=== PATIENT | male | born 1970 | race African-American/Black ===

== ENCOUNTER 2020-04-29 03:21 | Inpatient (IN) | payer SELFPAY ==
[~2020-04-29] VITALS: Ht 188 cm; Wt 114.3 kg
[2020-04-29] VITALS (8 sets, daily range): BP systolic 138–160; BP diastolic 95–109
[2020-04-29] MEDS ORDERED: HYDRALAZINE HCL 20 MG/ML VIAL IV PRN (05:00)
[2020-04-29] MEDS ORDERED: SODIUM CHLORIDE 0.9% 1000ML 1,000 ML IV SCH (05:00)
[2020-04-29] MEDS: NIFEDIPINE CR 30 MG TAB PO SCH ×2 (05:00→09:54)
[2020-04-29] MEDS ORDERED: ONDANSETRON HCL INJ 2MG/ML 2ML 2 MG/ML VIAL IV PRN (05:00)
[2020-04-29] MEDS ORDERED: ACETAMINOPHEN 325 MG TAB PO PRN (05:00)
[2020-04-29] MEDS ORDERED: DEXTROSE 50% SYRINGE 50 ML IV PRN (05:00)
[2020-04-29] MEDS ORDERED: NORVASC5 MG PO (06:29)
[2020-04-29 06:31] LABS: BASOPHILS % 0.7 % (0.0-1.0); EOSINOPHILS # (AUTO) 0.2 (0.0-0.4); EOSINOPHILS % 3.1 % (0.0-6.0); HEMATOCRIT 44.7 % (38.2-49.6); LYMPHOCYTES # (AUTO) 1.4 (1.0-3.2); LYMPHOCYTES % 23.4 % (18.0-39.1); MEAN CORPUSCULAR HEMOGLOBIN 29.4 pg (28-32); MEAN CORPUSCULAR HGB CONC 33.6 g/dL (31-35); MEAN CORPUSCULAR VOLUME 87.6 fL (81-99); MONOCYTES # (AUTO) 0.4 (0.2-0.8); MONOCYTES % 6.9 % (4.4-11.3); NEUTROPHILS # (AUTO) 3.9 (2.1-6.9); NEUTROPHILS % 65.6 % (38.7-80.0); PLATELET COUNT 209 x10e3/uL (140-360); RED CELL DISTRIBUTION WIDTH 12.1 % (11.7-14.4)
[2020-04-29 06:56] LABS: ALANINE AMINOTRANSFERASE 33 IU/L (0-55); ALBUMIN 3.5 g/dL (3.5-5.0); ALBUMIN/GLOBULIN RATIO 0.9 (0.8-2.0); ALKALINE PHOSPHATASE 118 IU/L (40-150); BLOOD UREA NITROGEN 11 mg/dL (7-26); BUN/CREATININE RATIO 11 (6-25); CALCIUM 8.6 mg/dL (8.4-10.2); CARBON DIOXIDE 20 mmol/L (22-29); CHLORIDE 106 mmol/L (98-107); EST GLOMERULAR FILTRATION RATE > 60 ML/MIN (60-); GLUCOSE 275 mg/dL (74-118); SODIUM 138 mmol/L (136-145)
[2020-04-29] MEDS ORDERED: INSULIN LISPRO 100 UNIT/1 ML 3ML VIAL SQ SCH ×2 (07:30→15:00)
[2020-04-29] MEDS: LOSARTAN POTASSIUM 100 MG TAB PO SCH ×2 (11:30→21:54)
--- NOTE | 2020-04-29 12:34 | NUR ---
ASSESSMENT: Spiritual concern Watch Inspector called pt's , Patricia, to provide spiritual/emotional support. Pt's states their family is "amazed of God's mercy." Pt's family hopeful of his soon recovery and discharge from hospital. Pt's stated that "seeing him on Facetime was a godsend." Intervention: Provided empathic listening and prayer. Outcome: Pt's stated "your call means all the world." Will follow as able. [facility] Department O: [phone]
[2020-04-29 14:32] LABS: FREE T4 (FREE THYROXINE) 0.88 ng/dL (0.8-1.8); THYROID STIMULATING HORMONE 1.327 uIU/mL (0.350-4.940)
--- NOTE | 2020-04-29 14:54 | NUR ---
GAVE PACKET OF INFORMATION WITH COMMUNITY RESOURCES FOR ASSISTANCE WITH LOW TO NO INCOME TO PATIENT. RESOURCES THAT PATIENT MAY BE ABLE TO FOLLOW UP UPON DISCHARGE. PT EDUCATED ON EACH RESOURCE AND UNDERSTANDING HOW TO FOLLOW UP TO SEE IF QUALIFIED FOR EACH RESOURCE.
[2020-04-29] MEDS ORDERED: INSULIN GLARGINE 100 UNITS/ML VIAL SQ SCH ×2 (17:00→21:00)
[2020-04-29] MEDS: INSULIN LISPRO 100 UNIT/1 ML 3ML VIAL SQ SCH ×3 (17:21→22:07)
[2020-04-29] MEDS: ENOXAPARIN SOD INJ 40 MG/0.4 ML SYR SC SCH (18:10)
--- NOTE | 2020-04-29 18:40 | NUR ---
RECEIVED PT FROM ICU. PT ORIENTED TO FLOOR ROOM AND CALL LIGHT
--- NOTE | 2020-04-29 18:50 | History and Physical ---
CHIEF COMPLAINT: Transfer from a freestanding ER due to concerns for DKA and hypertension urgency. HISTORY OF PRESENT ILLNESS: A 49-year-old male got transfer from a freestanding ER due to concerns for underlying DKA and hypertension urgency. The patient reports he has been diagnosed with prediabetes about a jbqq-dlr-t-half ago. He does not frequently see a PCP. He states he takes some oral medication, but he states that he is not very compliant seeing the PCP. He does not know the name of the medication he takes at home. The patient is currently doing well during my evaluation. He does not have any DKA according to the labs I had ordered. The patient was stable. He will be transferred to the medical floor. The patient reports he has been drinking a lot of juice, some water melons and some apple juice and OJ and reports he has been having significant amount of polyuria and polyphagia. Also polydipsia. REVIEW OF SYSTEMS: Pertinent positive: Polyphagia, polydipsia, polyuria. The rest of 14-point review of systems have been reviewed the patient and are negative. ALLERGIES: NO KNOWN DRUG ALLERGIES. HOME MEDICATIONS: Amlodipine. PAST MEDICAL HISTORY: Hypertension, prediabetes. PAST SURGICAL HISTORY: Reports none. FAMILY HISTORY: Hypertension, diabetes. SOCIAL HISTORY: No drugs. No alcohol. Does not smoke. Good social support. PHYSICAL EXAMINATION: VITAL SIGNS: Temperature is 97.9, pulse 98, respiratory rate 17, blood pressure is 150/105, pulse ox is 100% is on room air. GENERAL: No acute distress. Alert and oriented x3. Cooperative on examination. HEENT: Head is normocephalic, atraumatic. Eyes; pupils are equal, round, and reactive to light bilaterally. Extraocular movements are intact bilaterally. NECK: Supple. Good range of motion. Throat, no evidence of any erythema or exudates in the posterior pharynx. Has poor dentition. PULMONARY: Clear to auscultation bilaterally. No wheezing, no rales, no rhonchi, no crackles appreciated. CARDIOVASCULAR: Positive S1, S2. No murmurs, rubs, or gallops appreciated. ABDOMEN: Soft, nondistended, nontender to palpation. Bowel sounds present. MUSCULOSKELETAL: Strength is 5/5 throughout. No evidence of muscle deficits on examination. No weakness appreciated. NEUROLOGICAL: Cranial nerves 2 through 12 grossly intact. No evidence of any neurological deficits on exam. SKIN: Intact. Warm to touch. Good cap refill. PSYCHIATRIC: Normal affect and mood. EXTREMITIES: No edema. Good range of motion throughout. LABORATORY FINDINGS: Show white count 5.9, hemoglobin 15, hematocrit 44.7, platelets of 209. Chemistry; sodium 138, potassium 4, chloride 106, bicarb 20, anion gap of 16, BUN is 11, creatinine is 1, glucose was 275, point of care was 273. A1c 12.7. His LFTs within normal range. Total protein 7.5, albumin 3.5. Microbiology none. Anion gap of 16. His UA showed greater than 500 glucose. Nitrite and leukocyte were negative. Leukocyte esterase was negative. Troponin was negative. No imaging noted. IMPRESSION: 1. Uncontrolled type 2 diabetes. 2. Hypertension urgency. PLAN: At this time, the patient does not have any evidence of DKA. In fact, he did not even have DKA at the [facility] ER after reviewing the chart. The patient's glucose was elevated in fact he could have been given insulin and been discharged from the [facility] ER. On any rate, his hemoglobin A1c was 12.7. We will initiate him on insulin and have Endocrinology consultation. Stop IV fluids. Initiate nifedipine XL 30 mg daily and add losartan 50 mg twice a day. Otherwise, the patient is doing well. He is stable. We transfer from ICU to the medical floor. Potential discharge is tomorrow. Put him on Lovenox for DVT prophylaxis. MD LEE Farfan/MODL /[id number]
--- NOTE | 2020-04-29 19:10 | NUR ---
RECEIVED QUICK BRIEF BEDSIDE SHIFT REPORT FROM PREVIOUS NURSE. PATIENT SITTING IN BED. CALL LIGHT WITHIN REACH.
--- NOTE | 2020-04-29 21:10 | Consultation ---
DATE OF CONSULTATION: 04/29/2020 Endocrine Consultation The patient of Dr. Suarez. Thank you very much for referring this patient. HISTORY OF PRESENT ILLNESS: This is a 49-year-old black gentleman, who was referred to me for evaluation of new onset diabetes mellitus. The patient came to the hospital because of polyuria, polydipsia, dryness, and weight loss. On further evaluation, blood sugar was significantly elevated and anion gap was slightly high at the time of admission. The patient is admitted to the hospital for further evaluation. FAMILY HISTORY: The patient does have family history of diabetes mellitus and also has history of hypertension. SOCIAL HISTORY: The patient smokes and drinks alcohol. PHYSICAL EXAMINATION: GENERAL: Today, the patient is alert, awake, little bit apprehensive. VITAL SIGNS: His heart rate is around 78, blood pressure is 155/96 mmHg. HEENT: Essentially unremarkable. Thyroid is palpable. Clinically, he is near euthyroid. CHEST: Bilateral vesicular breathing. No rales. CARDIOVASCULAR: First and second heart sounds. There is no third or fourth heart sound. Ejection systolic murmur sound grade 2/6. 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 CLINICAL IMPRESSION: New onset diabetes mellitus, mild diabetic ketoacidosis and hypertension. PLAN: At this time is to start him on the Lantus and Humalog insulin. Monitor his blood sugars very closely. The patient needs extensive diabetic and dietary education. Thanks again for referring this patient. I will be following this patient with you. MD SHANIA York/MODL /[id number]
[2020-04-30] VITALS (8 sets, daily range): BP systolic 136–170; BP diastolic 80–111
--- NOTE | 2020-04-30 07:00 | NUR ---
RECEIVED PATIENT AWAKE RESTING IN BED NO S/S OF DISTRESS. BED LOW, WHEELS LOCKED, SIDE RAILS X2. CALL LIGHT IN REACH WILL CONTINUE TO MONITOR.
--- NOTE | 2020-04-30 07:14 | NUR ---
GAVE BEDSIDE SHIFT REPORT TO ONCOMING NURSE. HOURLY ROUNDING PERFORMED. PATIENT IN BED. CALL LIGHT WITHIN REACH.
[2020-04-30] MEDS: INSULIN LISPRO 100 UNIT/1 ML 3ML VIAL SQ SCH ×7 (07:30→20:53)
[2020-04-30] MEDS: NIFEDIPINE CR 30 MG TAB PO SCH (09:17)
[2020-04-30] MEDS: LOSARTAN POTASSIUM 100 MG TAB PO SCH ×2 (09:17→21:00)
--- NOTE | 2020-04-30 15:14 | Progress Note ---
DATE: 04/30/2020 Medicine Progress Note SUBJECTIVE: The patient reportedly doing much better today. Blood pressure is much improved. His glucose is still elevated today. He states he is feeling well. Discussed case with Endocrinology. PHYSICAL EXAMINATION: VITAL SIGNS: Temperature is 97.7, pulse 93, respiratory rate is 18, blood pressure 136/80, and pulse ox 98% on room air. GENERAL: Not in acute distress. Alert and oriented x3. Cooperative on examination. HEENT: Head; normocephalic, atraumatic. Eyes; pupils are equal, round, and reactive to light bilaterally. Extraocular movements intact bilaterally. Throat; no evidence of erythema or exudates in the posterior pharynx. Has poor dentition. NECK: Supple. Good range of motion. PULMONARY: Clear to auscultation bilaterally. No wheezing, no rales, no rhonchi, no crackles appreciated. CARDIOVASCULAR: Positive S1 and S2. No murmurs, rubs, or gallops appreciated. ABDOMEN: Soft, nondistended, and nontender to palpation. Bowel sounds present. MUSCULOSKELETAL: Strength is 5/5 throughout. No evidence of any muscle deficits on examination. SKIN: Intact. Warm to touch. Good cap refill. PSYCHIATRIC: Normal affect and mood. EXTREMITIES: No edema. Good range of motion throughout. LABORATORY FINDINGS: Show white count 5.9, hemoglobin 15, hematocrit is 44, and platelets of 209. Chemistry; sodium 130, potassium 4, chloride 106, bicarb 20, anion gap of 16, BUN is 11, and creatinine is 1. His point of care glucose was elevated at 418. All troponins were negative. TSH level was 1.327. MICROBIOLOGY: None. IMAGING: None. IMPRESSION: 1. Uncontrolled type 2 diabetes with A1c greater than 12. 2. Hypertension urgency. PLAN: At this time, glucose is still elevated, but he is not in DKA. Discussed this case with Endocrinology. The patient will eventually be discharged on NPH and regular insulin. He will continue with Lantus and Humalog while here in the hospital for better glucose control. I will go ahead and change nifedipine XL to Coreg and to losartan in order for cost issues. The patient cannot afford expensive drugs. We will see how these medications work for him at this time. He is currently on the medical floor. Potential discharge tomorrow. He is on Lovenox for DVT prophylaxis. A.m. labs including lipid panel, CBC, and BMP. MD LEE Farfan/BRIDGETT /[id number]
[2020-04-30] MEDS: ENOXAPARIN SOD INJ 40 MG/0.4 ML SYR SC SCH (16:35)
--- NOTE | 2020-04-30 19:36 | NUR ---
RECEIVED PATIENT IN BED AOX3 NO S/S OF DISTRESS. DENIES PAIN . CALL LIGHT WITH IN REACH CONTINUE TO MONITOR
[2020-04-30] MEDS: INSULIN GLARGINE 100 UNITS/ML VIAL SQ SCH (20:53)
[2020-05-01] VITALS (7 sets, daily range): BP systolic 135–148; BP diastolic 84–97
[2020-05-01 05:27] LABS: ANION GAP 12.2 mmol/L (8-16); BLOOD UREA NITROGEN 14 mg/dL (7-26); BUN/CREATININE RATIO 11 (6-25); CALCIUM 9.2 mg/dL (8.4-10.2); CARBON DIOXIDE 24 mmol/L (22-29); CHLORIDE 105 mmol/L (98-107); CHOL/HDL RATIO 3.3 (3.9-4.7); CHOLESTEROL 176 MD/DL (0-199); CREATININE, SERUM 1.31 mg/dL (0.72-1.25); EST GLOMERULAR FILTRATION RATE > 60 ML/MIN (60-); GLUCOSE 355 mg/dL (74-118); HDL CHOLESTEROL 54 MG/DL (40-60); LDL CHOLESTEROL 101 MG/DL (60-130); POTASSIUM 4.2 mmol/L (3.5-5.1); SODIUM 137 mmol/L (136-145); TRIGLYCERIDES 104 MG/DL (0-149)
--- NOTE | 2020-05-01 06:15 | NUR ---
PT RESTED DURING THE NIGHT DENIES PAIN ,CALL LIGHT WITH IN REACH .CONTINUE TO MONITOR
--- NOTE | 2020-05-01 07:00 | NUR ---
RECEIVED PATIENT AWAKE RESTING IN BED NO S/S OF DISTRESS. BED LOW, WHEELS LOCKED, SIDE RAILS X2. CALL LIGHT IN REACH WILL CONTINUE TO MONITOR.
--- NOTE | 2020-05-01 07:04 | NUR ---
BEDSIDE REPORT GIVEN TO THE ONCOMING NURSE
[2020-05-01] MEDS: INSULIN LISPRO 100 UNIT/1 ML 3ML VIAL SQ SCH ×7 (07:30→21:00)
[2020-05-01] MEDS: CARVEDILOL 12.5 MG TAB PO SCH ×2 (08:16→16:54)
[2020-05-01] MEDS: LOSARTAN POTASSIUM 100 MG TAB PO SCH ×2 (08:17→22:03)
[2020-05-01] MEDS: ENOXAPARIN SOD INJ 40 MG/0.4 ML SYR SC SCH (16:54)
--- NOTE | 2020-05-01 19:37 | NUR ---
RECEIVED PATIENT SETTING ON THE CHAIR AOX3 NO S/S OF DISTRESS. DENIES PAIN . CALL LIGHT WITH IN REACH CONTINUE TO MONITOR
[2020-05-01] MEDS: INSULIN GLARGINE 100 UNITS/ML VIAL SQ SCH (21:00)
[2020-05-02] VITALS: BP 138/94
--- NOTE | 2020-05-02 00:07 | Progress Note ---
DATE: 05/01/2020 SUBJECTIVE: The patient was evaluated approximately around 1:25 this afternoon with the nursing staff. The patient was doing well with no complaints. He is eager to go home. His glucose levels are still slightly elevated. PHYSICAL EXAMINATION: VITAL SIGNS: Temperature is 97.4, pulse 73, respiratory rate 20, blood pressure 148/84, pulse ox 100% on room air. GENERAL: Not in acute distress. Alert and oriented x3. Cooperative on examination. HEENT: Head is normocephalic and atraumatic. Eyes; pupils are equal and reactive to light bilaterally. Extraocular movements are intact bilaterally. Throat, no evidence of any erythema or exudates in the posterior pharynx. Has poor dentition. NECK: Supple. Good range of motion. PULMONARY: Clear to auscultation bilaterally. No wheezing, rales, or rhonchi. No crackles appreciated. CARDIOVASCULAR: Positive S1, S2. No murmurs, rubs, or gallops appreciated. ABDOMEN: Soft, nondistended, nontender to palpation. Bowel sounds present. MUSCULOSKELETAL: Strength is 5/5 throughout. No evidence of any muscle deficits on examination. No weakness appreciated. NEUROLOGIC: Cranial nerves 2-12 are grossly intact. No evidence of any neurological deficits on exam. SKIN: Intact. Warm to touch. Good cap refill. PSYCHIATRIC: Normal affect and mood. EXTREMITIES: No edema. Good range of motion throughout. LABORATORY FINDINGS: Chemistry; sodium 137, potassium 4.2, chloride 105, bicarb 24, anion gap of 12, BUN is 14, creatinine is 1.31. His glucose was elevated this morning at 355 and when I evaluated, it was 323. LDL was 101. Micro and imaging, none. IMPRESSION: 1. Uncontrolled type 2 diabetes. A1c greater than 12. 2. Hypertensive urgency. PLAN: At this time, glucose levels were elevated and I spoke with Endocrinology. He is going to write prescriptions for NPH regular insulin upon discharge. The patient cannot afford Lantus or Humalog. As for his blood pressure, the regimen of Coreg and losartan made his blood pressure much improved and these are very affordable drugs. Plan was to discharge later today if stable and doing well. We would like to monitor his glucose and make sure that it is much lower before discharge. MD LEE Farfan/RAMONL /[id number]
[2020-05-02 04:00] VITALS: BP 133/85
--- NOTE | 2020-05-02 06:38 | NUR ---
PT RESTING DENIES PAIN , DENIES PAIN CALL LIGHT WITH IN REACH ,CONTINUE TO MONITOR
--- NOTE | 2020-05-02 07:00 | NUR ---
bedside shift report received pt in stable condition, denies pain at this time, updated on poc voiced understanding, l hand 20g no ss of infiltration noted, no other co voicced call light in reach will continue to monitor
[2020-05-02] MEDS: INSULIN LISPRO 100 UNIT/1 ML 3ML VIAL SQ SCH ×4 (07:30→11:30)
[2020-05-02 08:55] VITALS: BP 151/93
[2020-05-02] MEDS: CARVEDILOL 12.5 MG TAB PO SCH (08:56)
[2020-05-02] MEDS: LOSARTAN POTASSIUM 100 MG TAB PO SCH (08:58)
[2020-05-02 09:08] VITALS: BP 151/93
[2020-05-02 12:28] VITALS: BP 145/96
[2020-05-02] MEDS ORDERED: LOSARTAN POTASS25 MG PO (14:19)
[2020-05-02] MEDS ORDERED: COREG12.5 MG PO (14:19)
[2020-05-02] MEDS ORDERED: NOVOLIN N100 UNIT/1 SQ ×2 (14:20→14:21)
[2020-05-02] MEDS ORDERED: HUMULIN R100 UNIT/2 SQ (14:23)
[2020-05-02] MEDS ORDERED: ONDANSETRON HCL 4 MG ORAL DISINTEGRATING TAB PO PRN (14:30)
--- NOTE | 2020-05-02 16:29 | NUR ---
Nutrition Screen Note RD Recommendation for Physician: -Recommend 1999 ADA diet Plan of Care: RD following, monitoring for tolerance and adequacy Nutrition reason for involvement: consult new diabetic diet education Primary Diagnose(s): HTN, DKA PMH: HTN, prediabetes Ht: 74 in Wt:252 lb BMI: 32.4 kg/m2 IBW:[address] Assessment: (05/02/20) Chart reviewed. Labs and meds reviewed. Pt is a 49 year old male admitted with HTN and DKA. RD was consulted for diabetic diet education which was provided. Pt reports a good appetite and eats all of his meals. Pt stated he usually weighs 245 lbs, however, pt currently weighs 252 lbs per chart. Will continue to monitor Current Diet: 1800 ADA Malnutrition Evaluation (05/02/20) The patient does not meet criteria for a specified degree of malnutrition at this time. Will re-evaluate at follow-up as appropriate. Diet Education Needs Assessment: Diet education indicated Learner(s): pt Barriers: no barriers identified Cultural/Language Modifications: no cultural/language modifications Readiness: eager/acceptance Method: explanation/discussion/handout Topics: carbohydrate counting and reading the food label Understanding/Compliance: pt verbalized understanding Nutrition Care Level: low Signed: Tamar Aguirre, RD, LD
--- OUTSIDE RECORDS SUMMARY | 2020-05-02 19:07 | XMS REPORT ---
Author Author FANNY CARBONE Organization [employer] Address Unknown Phone Unavailable Care Team Providers Care Credit Analysis Manager Name Role Phone BEULAH CARBONE Unavailable Encounters Encounter Location Date pending patient call [facility] Nov 18, 2014 [employer]ING [employer] EST CARE [facility] Nov 15, 2014 RF [facility] April 07, 2016 Problems Problem Type Condition ICD-9 Code Onset Dates Condition Statu s Problem Essential (primary) hypertension I10 Active Medications Medication Code System Code Instructions Start Date End Date Status Dosage hydrochlorothiazide-lisinopril MULTUM 03755 12.5 mg-20 orally o nce a day Active 1 tab(s) Social History Social History Element Qualifiers Date Reported Marital Status: . March 02, 2016 Caffeine: . 3-4 cups a week of coffee March 02 16 Exercise: . Occasional March 02, 2016 Children: . 3 kids March 02, 2016 Drug use: . None reported March 02, 2016 Sexually active: . Yes March 02, 2016 Tobacco Use: . Are you a: Current occasional (some d ay) smoker Cigars March 02, 2016 Alcohol Use: . Status: Socially March 02, 2016 Travel ouside [place]: . 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
--- OUTSIDE RECORDS SUMMARY | 2020-05-02 19:07 | XMS REPORT ---
Author Author FANNY CARBONE Organization [employer] Address Unknown Phone Unavailable Care Team Providers Care Surveyor Instrument Assistant Name Role Phone BEULAH CARBONE CP Unavailable Allergies, Adverse Reactions, Alerts Substance Reaction Event Type N.K.D.A. Info Not Available Non Drug Allergy Problems Problem Type Condition Code Onset Dates Condition Statu s Assessment Essential (primary) hypertension I10 Active Problem Essential (primary) hypertension I10 Active Medications Medication Code System Code Instructions Start Date End Date Status Dosage AMLODIPINE BESYLATE [facility] 96627510709 10 mg orally once a day April 09, 2016 Active 1 tab(s) hydrochlorothiazide-lisinopril [facility] 54365180447 12.5 mg-20 oral ly once a day May 28, 2017 Active 1 tab(s) Vital Signs Date/Time: Nov 29, 2016 Temperature 98.5 F Weight 261 lbs Height 71 in Respiratory Rate 16 /min Pulse 99 /min Blood Pressure Diastolic 90 mm Hg Blood Pressure Systolic 130 mm Hg BMI 36.40 Index Oximetry 96 % Results No Known Results Summary Purpose [employer] Submission
--- OUTSIDE RECORDS SUMMARY | 2020-05-02 19:07 | XMS REPORT ---
Author Author FANNY CARBONE Organization [employer] Address Unknown Phone Unavailable Care Team Providers Care Care Professional Name Role Phone BEULAH CARBONE CP Unavailable Allergies No Known Allergies Problems Problem Type Condition Code Onset Dates Condition Statu s Problem Essential (primary) hypertension I10 Active Medications No Known Medications Results No Known Results Summary Purpose [employer] Submission
--- OUTSIDE RECORDS SUMMARY | 2020-05-02 19:07 | XMS REPORT ---
Author Author FANNY CARBONE Organization [employer] Address Unknown Phone Unavailable Care Team Providers Care Lathe Mechanic Name Role Phone BEULAH CARBONE CP Unavailable Allergies, Adverse Reactions, Alerts Substance Reaction Event Type N.K.D.A. 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 Second Hand Smoke Exposure: No Nov Marital Status: . Nov 29, 2016 Caffeine: . 3-4 cups a week of coffee Nov 29 Exercise: . Occasional Nov 29, 2016 Children: . 3 kids Nov 29, 2016 Drug use: . None reported Nov 29, 2016 Sexually active: . Yes Nov 29, 2016 Tobacco Use: . Are you a: Current occasional (some d ay) smoker Cigars Nov 29, 2016 Alcohol Use: . Status: Socially Nov 29, 2016 Travel ouside [place]: . 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
--- OUTSIDE RECORDS SUMMARY | 2020-05-02 19:07 | XMS REPORT ---
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 April 09, 2016 Caffeine: . 3-4 cups a week of coffee April 09 016 Exercise: . Occasional April 09, 2016 Children: . 3 kids April 09, 2016 Drug use: . None reported April 09, 2016 Sexually active: . Yes April 09, 2016 Tobacco Use: . Are you a: Current occasional (some d ay) smoker Cigars April 09, 2016 Alcohol Use: . Status: Socially April 09, 2016 Travel ouside [place]: . 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
--- OUTSIDE RECORDS SUMMARY | 2020-05-02 19:07 | XMS REPORT ---
Author Author FANNY CARBONE Organization [employer] Address Unknown Phone Unavailable Care Team Providers Care Millinery Blocker Name Role Phone BEULAH CARBONE CP Unavailable Allergies, Adverse Reactions, Alerts Substance Reaction Event Type N.K.D.A. Info Not Available Non Drug Allergy Problems Problem Type Condition Code Onset Dates Condition Statu s Assessment Encounter for immunization Z23 A ctive Problem Essential (primary) hypertension I10 Active Assessment Essential (primary) hypertension I10 Active Medications Medication Code System Code Instructions Start Date End Date Status Dosage Benicar HCT ND 85721988091 25 mg-40 mg orally once a day Jul 31 Active 1 tab(s) AMLODIPINE BESYLATE NDC 41966395290 10 mg orally once a day Active 1 tab(s) Zestoretic ND 10053470674 25 mg-20 mg orally once a day Active 1 tab(s) AMLODIPINE BESYLATE ND 87117629073 10 mg orally once a day April 09, 2016 Active 1 tab(s) AMLODIPINE BESYLATE ND 74743145122 10 orally once a day Active 1 tab(s) Vital Signs Date/Time: Jul 31, 2019 Temperature 97.2 F Weight 269.2 lbs Height 71 in Respiratory Rate 16 /min Pulse 91 /min Blood Pressure Diastolic 100 mm Hg Blood Pressure Systolic 160 mm Hg BMI 37.54 Index Oximetry 98 % Results Name Result Date Reference Range Unit Abnormali ty Flag 4895 MICROALBUMIN/CREATININE, RANDOM AND RATIO ----CALC ALBUMIN/CREAT, RND 49 [id number] <30 MG/G H ----CREATININE, URINE, CONC. 206.4 16032069 NOT ESTAB MG/DL ----ALBUMIN, URINE, RANDOM 10.1 [id number] MG/DL 9180 CMP + e-GFR ----CALC A/G RATIO 1.2 [id number] 1.0-2.6 RATIO ----CALC GLOBULIN 3.8 [id number] 1.9-3.7 G/DL H ----ALKALINE PHOSPHATASE 93 20190731 40-118 U/L ----BILIRUBIN, TOTAL 0.6 20190731 <=1.2 MG/DL ----CHLORIDE 101 20190731 95-107 MEQ/L ----ALT 27 20190731 5-50 U/L ----POTASSIUM 3.8 20190731 3.5-5.4 MEQ/L ----AST 26 20190731 9-50 U/L ----SODIUM 142 [id number] 133-146 MEQ/L ----CALC BUN/CREAT 13 20190731 6-28 RATIO ---- eGFR NON- AMER. 85 [id number] >60 ML/MIN/1 .73 ----CALCIUM 9.8 [id number] 8.5-10.5 MG/DL ----CARBON DIOXIDE 24 [id number] 19-31 MEQ/L ----ALBUMIN 4.6 [id number] 3.5-5.2 G/DL ----PROTEIN, TOTAL 8.4 [id number] 6.1-8.3 G/DL H ----GLUCOSE 154 [id number] 70-99 MG/DL H ----BUN 13 [id number] 6-20 MG/DL ----CREATININE 1.04 [id number] 0.80-1.40 MG/DL ---- eGFR AMER. 99 [id number] >60 ML/MIN/1.73 1000 CBC W/AUTO DIFF ----MCHC 35.5 [id number] 32.0-35.5 G/DL ----MCH 31.0 [id number] 27.0-34.0 PG ----NEUTROPHILS 66.4 [id number] 40.0-74.0 % ----RDW 13.3 [id number] 11.0-15.0 % ----MONOCYTES 6.2 [id number] 4.0-13.0 % ----EOSINOPHILS 2.4 [id number] 0.0-7.0 % ----LYMPHOCYTES 24.3 [id number] 19.0-48.0 % ----HEMATOCRIT 47.0 [id number] 37.0-49.0 % ----MCV 87.2 [id number] 80.0-100.0 fL ----BASOPHILS 0.7 50936792 0.0-2.0 % ----RBC 5.39 [id number] 4.10-5.70 M/UL ----PLATELET COUNT 284 [id number] 130-400 K/UL ----HEMOGLOBIN 16.7 [id number] 13.0-17.0 G/DL ----WBC 6.8 [id number] 4.0-11.0 K/UL Immunizations Vaccine Administration Date Influenza Fluzone Quadrivalent Jul 31, 2019 Summary Purpose eClinicalWorks Submission
--- OUTSIDE RECORDS SUMMARY | 2020-05-02 19:07 | XMS REPORT ---
Author Author FANNY CARBONE Organization e[employer] Address Unknown Phone Unavailable Care Team Providers Care Test Tech Name Role Phone BEULAH CARBONE CP Unavailable Allergies, Adverse Reactions, Alerts Substance Reaction Event Type N.K.D.A. 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 3 kids Nov 19, 2014 Marital Status: . Nov 19, 2014 Caffeine: . 3-4 cups a week of coffee Nov 19 15 Exercise: . Occasional Nov 19, 2014 Drug use: . None reported Nov 19, 2014 Tobacco Use: . Are you a: Current occasional (some d ay) smoker Cigars Nov 19, 2014 Alcohol Use: . 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
--- OUTSIDE RECORDS SUMMARY | 2020-05-02 19:07 | XMS REPORT ---
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
--- OUTSIDE RECORDS SUMMARY | 2020-05-02 19:07 | XMS REPORT ---
Author Author FANNY CARBONE Organization [employer] Address Unknown Phone Unavailable Care Team Providers Care Tool Grinding Technician Name Role Phone BEULAH CARBONE CP Unavailable Allergies No Known Allergies Problems Problem Type Condition Code Onset Dates Condition Statu s Problem Essential (primary) hypertension I10 Active Medications No Known Medications Results No Known Results Summary Purpose eClinicalWorks Submission
--- OUTSIDE RECORDS SUMMARY | 2020-05-02 19:07 | XMS REPORT ---
Author Author FANNY CARBONE Organization [employer] Address Unknown Phone Unavailable Care Team Providers Care Supervisor Endless Track Vehicle Name Role Phone BEULAH CARBONE CP Unavailable Allergies No Known Allergies Problems Problem Type Condition Code Onset Dates Condition Statu s Problem Essential (primary) hypertension I10 Active Medications Medication Code System Code Instructions Start Date End Date Status Dosage AMLODIPINE BESYLATE [facility] [id number] 10 mg orally once a day Active 1 tab(s) Results No Known Results Summary Purpose eClinicalWorks Submission
--- OUTSIDE RECORDS SUMMARY | 2020-05-02 19:07 | XMS REPORT | Continuity of Care Document ---
Author Author FANNY Thomas [email or web address] Address Unknown Phone Unavailable Care Team Providers Care Gericare Aide Teacher Name Role Phone [email or web address] Unavailable Un available Problems Problem Status Onset Date Classification Date Reported Comments Source Essential (primary) hypertension Active Problem 03/2019 [facility] Headache Active Diagnosis 09/26/2015 [facility] Elevated blood-pressure reading, without diagnosis of hypertension Active Diag nosis 12/06/2016 [facility] Encounter for immunization Act panchito Diagnosis 1 [facility] Medications Medication Details Route Status Patient Instructions Ordering Provider Order Date Source Benicar HCT 1 tab(s) orally Active 25 mg-40 mg orally once a day CARBONE 07/31/2019 [facility] Zestoretic 1 tab(s) orally Active 25 mg-20 mg orally once a day CARBONE 04/13/2018 [facility] hydrochlorothiazide-lisinopril 1 tab(s) orally Active 12.5 mg-2 orally once a day CARBONE 03/26/2018 [facility] hydrochlorothiazide-lisinopril 1 tab(s) orally Active 12.5 mg-20 orally once a day CARBONE 05/28/2017 [facility] Zestoretic 1 tab(s) orally Active 25 mg-20 mg orally once a day CARBONE 04/12/2017 [facility] AMLODIPINE BESYLATE 1 tab(s) orally Active 10 mg orally once a day CARBONE 04/09/2016 [facility] AMLODIPINE BESYLATE 1 tab(s) orally Active 10 mg orally once a day CARBONE 04/09/2016 [facility] ciprofloxacin 1 tab(s) orally Active 500 mg orally every 12 hours CARBONE 03/04/2016 [facility] hydrochlorothiazide-lisinopril 1 tab(s) orally Active 12.5 mg-20 mg orally once a day CARBONE 03/02/2016 [facility] hydrochlorothiazide-lisinopril 1 tab(s) orally Active 12.5 mg-20 orally once a day CARBONE [facility] hydrochlorothiazide-lisinopril 1 tab(s) orally Active 12.5 mg-20 orally once a day CARBONE [facility] AMLODIPINE BESYLATE 1 tab(s) orally Active 10 mg orally once a day CARBONE [facility] Zestoretic 1 tab(s) orally Active 25 mg-20 mg orally once a day CARBONE [facility] AMLODIPINE BESYLATE 1 tab(s) orally Active 10 orally once a day CARBONE [facility] Allergies, Adverse Reactions, Alerts Substance Category Reaction Severity Reaction type Status Date Reported Comments Source N.K.D.A. Adverse Reaction Info Not Available Adverse Reaction 07/31/2019 [facility] Immunizations Immunization Date Given Site Status Last Updated Comments Source Influenza Fluzone Quadrivalent 07/31/2019 completed [facility] Results No Data Provided for This Section Pathology Reports No Data Provided for This Section Diagnostic Reports No Data Provided for This Section Consultation Notes No Data Provided for This Section Discharge Summaries No Data Provided for This Section History and Physicals No Data Provided for This Section Vital Signs Vital Sign Value Date Comments Source Temperature Oral (F) 97.2 F 07/31/2019 [facility] Weight 269.2 07/31/2019 [facility] Height 71 1 [facility] Respitory Rate 16 07/31/2019 [facility] Diastolic (mm Hg) 100 07/31/2019 [facility] Systolic (mm Hg) 160 07/31/2019 [facility] Temperature Oral (F) 97.2 F 04/13/2018 [facility] Weight 269 04/13/2018 [facility] Height 71 0 04/13/2018 [facility] Respitory Rate 16 04/13/2018 [facility] Diastolic (mm Hg) 96 04/13/2018 [facility] Systolic (mm Hg) 172 04/13/2018 [facility] Temperature Oral (F) 98.0 F 04/12/2017 [facility] Weight 261 04/12/2017 [facility] Height 71 0 04/12/2017 [facility] Respitory Rate 16 04/12/2017 [facility] Diastolic (mm Hg) 90 04/12/2017 [facility] Systolic (mm Hg) 150 04/12/2017 [facility] Temperature Oral (F) 98.5 F 11/29/2016 [facility] Weight 261 11/29/2016 [facility] Height 71 0 11/29/2016 [facility] Respitory Rate 16 11/29/2016 [facility] Diastolic (mm Hg) 90 11/29/2016 [facility] Systolic (mm Hg) 130 11/29/2016 [facility] Temperature Oral (F) 98.0 F 04/09/2016 [facility] Weight 249 04/09/2016 [facility] Height 71 0 04/09/2016 [facility] Respitory Rate 16 04/09/2016 [facility] Diastolic (mm Hg) 100 04/09/2016 [facility] Systolic (mm Hg) 160 04/09/2016 [facility] Temperature Oral (F) 98.0 F 03/02/2016 [facility] Weight 249 03/02/2016 [facility] Height 71 0 03/02/2016 [facility] Respitory Rate 16 03/02/2016 [facility] Diastolic (mm Hg) 98 03/02/2016 [facility] Systolic (mm Hg) 188 03/02/2016 [facility] Temperature Oral (F) 98.2 F 01/12/2016 [facility] Weight 250 01/12/2016 [facility] Height 71 0 01/12/2016 [facility] Respitory Rate 16 01/12/2016 [facility] Diastolic (mm Hg) 100 01/12/2016 [facility] Systolic (mm Hg) 160 01/12/2016 [facility] Temperature Oral (F) 97.1 F 11/15/2014 [facility] Weight 263 11/15/2014 [facility] Height 71 0 11/15/2014 [facility] Respitory Rate 16 11/15/2014 [facility] Diastolic (mm Hg) 68 11/15/2014 [facility] Systolic (mm Hg) 126 11/15/2014 [facility] Encounters Location Location Details Encounter Type Encounter Number Reason For Visit Attending Provider ADM Date DC Date Status Source [facility] [id number] 11/15/19 15 11/15/2014 [facility] [id number] 11/15/19 15 11/15/2014 [facility] [id number] 11/15/19 15 11/15/2014 [facility] [id number] 11/15/19 15 11/15/2014 [facility] [id number] 11/15/19 15 11/15/2014 [facility] [id number] 11/15/19 15 11/15/2014 [facility] pending patient call [id number] 11/18/19 15 11/18/2014 [facility] pending patient call [id number] 11/18/19 15 11/18/2014 [facility] pending patient call [id number] 11/18/19 15 11/18/2014 [facility] pending patient call [id number] 11/18/19 15 11/18/2014 [facility] pending patient call [id number] 11/18/19 15 11/18/2014 [facility] pending patient call [id number] 11/18/19 15 11/18/2014 [facility] [id number] 01/12/2016 01/12/2016 [facility] BP [id number] 01/12/2016 01/12/2016 [facility] BP [id number] 03/02/20 16 03/02/2016 [facility] labs- pending pt call [id number] 03/03/2016 03/03/2016 [facility] labs- pending pt call [id number] 03/03/2016 03/03/2016 [facility] labs- pending pt call [id number] 03/03/2016 03/03/2016 [facility] RF [id number] 04/07/2016 04/07/2016 [facility] RF [id number] 04/07/2016 04/07/2016 [facility] RF [id number] 04/07/2016 04/07/2016 [facility] RF [id number] 04/07/2016 04/07/2016 [facility] RF [id number] 04/07/2016 04/07/2016 [facility] Message [id number] 04/20/20 16 04/20/2016 [facility] Message [id number] 04/20/20 16 04/20/2016 [facility] Message [id number] 04/20/20 16 04/20/2016 [facility] Message [id number] 04/20/20 16 04/20/2016 [facility] Procedures No Data Provided for This Section Assessment and Plan No Data Provided for This Section Plan of Care No Data Provided for This Section Social History Social History Date Source Social History ElementQualifiersDate Rep orted Smoke Exposure: . Second Hand Smoke Exposure: No Nov 29, 2016 Marital Status: . Nov 29, 2016 Caffeine: . 3-4 cups a week of coffee Nov 29, 2016 Exercise: . 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
--- OUTSIDE RECORDS SUMMARY | 2020-05-02 19:07 | XMS REPORT ---
Author Author FANNY CARBONE Organization e[employer]Works Address Unknown Phone Unavailable Care Team Providers Care Bathhouse Attendant Name Role Phone BEULAH CARBONE CP Unavailable Allergies, Adverse Reactions, Alerts Substance Reaction Event Type N.K.D.A. Info Not Available Non Drug Allergy Problems Problem Type Condition Code Onset Dates Condition Statu s Assessment Essential (primary) hypertension I10 Active Problem Essential (primary) hypertension I10 Active Medications Medication Code System Code Instructions Start Date End Date Status Dosage hydrochlorothiazide-lisinopril [facility] 08092315986 12.5 mg-20 orally once a day Active 1 tab(s) AMLODIPINE BESYLATE [facility] 80766173938 10 mg orally once a day April 09, 2016 Active 1 tab(s) Vital Signs Date/Time: April 09, 2016 Temperature 98.0 F Weight 249 lbs Height 71 in Respiratory Rate 16 /min Pulse 80 /min Blood Pressure Diastolic 100 mm Hg Blood Pressure Systolic 160 mm Hg BMI 34.72 Index Oximetry 98 % Results No Known Results Summary Purpose eClinicalWorks Submission
--- OUTSIDE RECORDS SUMMARY | 2020-05-02 19:07 | XMS REPORT ---
Author Author FANNY CARBONE Organization [employer]Works Address Unknown Phone Unavailable Care Team Providers Care Coke Wheeler Name Role Phone BEULAH CARBONE CP Unavailable Allergies No Known Allergies Problems Problem Type Condition Code Onset Dates Condition Statu s Problem Essential (primary) hypertension I10 Active Medications No Known Medications Results No Known Results Summary Purpose eClinicalWorks Submission
--- OUTSIDE RECORDS SUMMARY | 2020-05-02 19:07 | XMS REPORT ---
Author Author FANNY CARBONE Organization [employer]Works Address Unknown Phone Unavailable Care Team Providers Care Brass Wind Instruments Tube Bender Name Role Phone BEULAH CARBONE CP Unavailable Allergies No Known Allergies Problems Problem Type Condition Code Onset Dates Condition Statu s Problem Essential (primary) hypertension I10 Active Medications Medication Code System Code Instructions Start Date End Date Status Dosage AMLODIPINE BESYLATE [facility] 93067197976 10 mg orally once a day April 09, 2016 Active 1 tab(s) Results No Known Results Summary Purpose eClinicalWorks Submission
--- OUTSIDE RECORDS SUMMARY | 2020-05-02 19:07 | XMS REPORT ---
Author Author FANNY CARBONE Organization [employer] Address Unknown Phone Unavailable Care Team Providers Care Hose Builder Name Role Phone BEULAH CARBONE CP Unavailable Allergies, Adverse Reactions, Alerts Substance Reaction Event Type N.K.D.A. Info Not Available Non Drug Allergy Problems Problem Type Condition Code Onset Dates Condition Statu s Assessment Essential (primary) hypertension I10 Active Problem Essential (primary) hypertension I10 Active Medications Medication Code System Code Instructions Start Date End Date Status Dosage hydrochlorothiazide-lisinopril [facility] 99368303176 12.5 mg-2 orall y once a day March 26, 2018 Active 1 tab(s) AMLODIPINE BESYLATE [facility] 15715072151 10 mg orally once a day April 09, 2016 Active 1 tab(s) Zestoretic [facility] 86952262303 25 mg-20 mg orally once a day April 13, 2018 Jul 12, 2018 Active 1 tab(s) Vital Signs Date/Time: April 13, 2018 Temperature 97.2 F Weight 269 lbs Height 71 in Respiratory Rate 16 /min Pulse 74 /min Blood Pressure Diastolic 96 mm Hg Blood Pressure Systolic 172 mm Hg BMI 37.51 Index Oximetry 97 % Results No Known Results Summary Purpose eClinicalWorks Submission
--- OUTSIDE RECORDS SUMMARY | 2020-05-02 19:07 | XMS REPORT ---
Author Author FANNY CARBONE Organization [employer] Address Unknown Phone Unavailable Care Team Providers Care Bilingual Manager Name Role Phone BEULAH CARBONE CP Unavailable Allergies, Adverse Reactions, Alerts Substance Reaction Event Type N.K.D.A. Info Not Available Non Drug Allergy Problems Problem Type Condition Code Onset Dates Condition Statu s Assessment Essential (primary) hypertension I10 Active Problem Essential (primary) hypertension I10 Active Medications Medication Code System Code Instructions Start Date End Date Status Dosage hydrochlorothiazide-lisinopril [facility] 96550472314 12.5 mg-20 oral ly once a day May 28, 2017 Inactive 1 tab(s) Zestoretic [facility] 13875041184 25 mg-20 mg orally once a day April 12, 2017 Oct 09, 2017 Active 1 tab(s) AMLODIPINE BESYLATE [facility] 43021917596 10 mg orally once a day April 09, 2016 Active 1 tab(s) Vital Signs Date/Time: April 12, 2017 Temperature 98.0 F Weight 261 lbs Height 71 in Respiratory Rate 16 /min Pulse 95 /min Blood Pressure Diastolic 90 mm Hg Blood Pressure Systolic 150 mm Hg BMI 36.40 Index Oximetry 98 % Results No Known Results Summary Purpose eClinicalWorks Submission
--- NOTE | 2020-05-03 00:52 | Discharge Summary ---
FINAL DISCHARGE DIAGNOSES: 1. Uncontrolled type 2 diabetes. 2. Hypertension urgency. CONSULTANTS: Endocrinology. PHYSICAL EXAMINATION: VITAL SIGNS: Temperature is 98.6, pulse 75, respiratory rate is 20, blood pressure 145/96, and pulse ox 99% on room air. LABORATORY FINDINGS: Show white count 5.9, hemoglobin 15, hematocrit 44, platelets of 209. Chemistry; sodium 137, potassium 4.2, chloride 105, bicarb 24, anion gap of 12, BUN 14, creatinine 1.31, and glucose 226. On discharge, hemoglobin A1c was 12. LFTs within normal range. Albumin 3.5. TSH is 1.3. LDL was 101. Microbiology none. IMAGING STUDIES: None. HOSPITAL COURSE: This is a 49-year-old male. He came from a freestanding ER after having, which was found to be very hyperglycemic concerning for underlying DKA. The patient was transferred from the ER there to our ICU. On arrival here, stat labs were performed. The patient was not in diabetic ketoacidosis. The patient was initiated on insulin and Endocrinology was consulted. The patient also had underlying hypertension urgency in which he was initiated on oral antihypertensive medications. In relation to his blood pressure, he was stable and he was discharged on losartan as well as Coreg. As for his insulin regimen, he was sent home on an insulin regimen by Dr. Rivera, endocrinology. His blood pressure was stable. His glucose levels were much improved. He was stable prior to being discharged to home. He reports no complaints. No nausea, no vomiting, no dysuria, no polyphagia. He states he is back to normal baseline with no other issues. The patient was advised to follow up with the PCP, Endocrinology or any physician he wants very closely for further management and care. All prescriptions were provided to the patient. On the day of discharge, vital signs were stable. Labs reviewed and stable. The patient is seen and evaluated and examined thoroughly on the day of discharge. No other complaints. The patient verbalized understanding and agrees to plan of care. He will follow up as an outpatient with the primary care physician in 1 week and parts puller in 10-14 days. MEDICATIONS: See med reconciliation. DISPOSITION: Home. CONDITION: Stable. DIET: Heart healthy. In the event of any worsening symptoms, the patient wants to come back to the ED for further evaluation. Discharge summary took greater than 35 minutes. Once again, the patient was provided medication list to [facility]. He was also provided at [facility] as well as other resources by case management and social work. MD LEE Farfan/BRIDGETT /[id number]
== END 2020-05-02 17:05 | disposition home or self-care (01) | DRG 639 ==
LOC: ICU 04:14 → MED/SURG 18:50
PROVIDERS: ADMIT Internal Medicine; ATTEND Internal Medicine
DX: E11.10 Type 2 diabetes mellitus with ketoacidosis without coma (principal); E11.40 Type 2 diabetes mellitus with diabetic neuropathy, unspecified; I16.0 Hypertensive urgency; Z11.59 Encounter for screening for other viral diseases
CPT/HCPCS: 36415; 80048; 80053; 80061; 82948; 83036; 84439; 84443; 84484; 85025; J0360; J1650; J1815; J7030